=== PATIENT | female | born 1985 | race Caucasian/White ===

== ENCOUNTER → 2021-02-05 | Outpatient (CLI) | payer BC ==
[~2021-02-05] MED LIST: FERROUS SULFAT324 MG PO; FLINTSTONES1 EAC1 PO; HYDROCODONE-AC1 EACH PO; IBUPROFEN600 MG PO; LEVOTHYROXINE25 MC1 PO; ZANAFLEX2 MG PO
[2021-02-05 09:34] LABS: HEMOGLOBIN 12.7 gm/dl (12.3-15.3); RED BLOOD COUNT 4.59 M/UL (4.00-5.10); WHITE BLOOD COUNT 5.4 K/UL (4.5-11.0)
== END ==
LOC: OPSV2 02-03 09:00
PROVIDERS: Obstetrics & Gynecology
DX: Z01.812 Encounter for preprocedural laboratory examination (principal); N92.0 Excessive and frequent menstruation with regular cycle
CPT/HCPCS: 36415; 81001; 85025

== ENCOUNTER → 2021-02-10 | Day surgery (SDC) | payer BC ==
[~2021-02-10] VITALS: Ht 154.9 cm; Wt 79.4 kg
== END | disposition home or self-care (01) ==
LOC: OR 08:07
DX: N92.1 Excessive and frequent menstruation with irregular cycle (principal); N39.46 Mixed incontinence; J45.909 Unspecified asthma, uncomplicated; D50.9 Iron deficiency anemia, unspecified; E55.9 Vitamin D deficiency, unspecified; E03.9 Hypothyroidism, unspecified; E78.00 Pure hypercholesterolemia, unspecified; A60.00 Herpesviral infection of urogenital system, unspecified
CPT/HCPCS: 36415; 84703; J0690; J1100; J1885; J2001; J2250; J2405; J2704; J3010; J7030; J7120